=== PATIENT | female | born 1975 | race American Indian/Alaskan Native ===

== ENCOUNTER 2021-07-05 11:45 | Emergency (ER) | payer OTHER ==
[2021-07-05 13:03] VITALS: BP 131/77
[2021-07-05] MEDS ORDERED: HYDROcodone/ACETAMINOPHEN 5-325 MG TAB PO ONE (13:07)
[2021-07-05] MEDS ORDERED: IBUPROFEN 800 MG TAB PO ONE (13:07)
[2021-07-05] MEDS ORDERED: CYCLOBENZAPRINE 10 MG TAB PO ONE (13:07)
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
== END 2021-07-05 13:33 | disposition home or self-care (01) ==
LOC: ED 11:45
DX: M79.18 Myalgia, other site (principal); V87.7XXA Person injured in collision between other specified motor vehicles (traffic), initial encounter; Y93.89 Activity, other specified; Y92.89 Other specified places as the place of occurrence of the external cause; Y99.8 Other external cause status; Z79.899 Other long term (current) drug therapy; Z98.890 Other specified postprocedural states
CPT/HCPCS: 99282